=== PATIENT | female | born 1990 | race Caucasian/White ===

== ENCOUNTER 2016-11-16 05:21 | Inpatient (IN) | payer BC, OTHER ==
[2016-11-03 15:15] LABS: BASO % 0.2 %; BASO ABS # 0.02 K/uL (0-0.2); COMPLETE YES; EOS % 0.8 %; HEMATOCRIT 34.7 % (37-47); IG% 0.3 %; LYMPH % 16.5 %; LYMPH ABS # 2.06 K/uL (1.2-3.4); MEAN CELL VOLUME 93.8 fL (80-100); MEAN CORPUSCULAR HEMOGLOBIN 32.2 pg (25-34); MEAN CORPUSCULAR HGB CONC 34.3 g/dl (32-36); MEAN PLATELET VOLUME 9.7 fL (7.4-10.4); MONO % 6.2 %; PLATELET COUNT 218 K/uL (130-400); WHITE BLOOD COUNT 12.48 K/uL (4.8-10.8)
[~2016-11-16] VITALS: Ht 162.6 cm; Wt 126.5 kg
[2016-11-16] VITALS (15 sets, daily range): BP systolic 104–127; BP diastolic 66–81; PULSE 72–90; TEMP 36.7–37.2; O2SAT 96–99; Ht 162.6 cm; Wt 126.5 kg
[~2016-11-16 05:21] MED LIST: VNTHFA/IN INH; [UNRECOGNIZED DRUG - OTHER] PO
[2016-11-16] MEDS ORDERED: LACTATED RINGER'S 1000ML 1,000 ML IV ONE (05:29)
[2016-11-16] MEDS ORDERED: CITRIC ACID/SODIUM CITRATE 15 ML UDC PO SCH (06:00)
[2016-11-16] MEDS ORDERED: CEFAZOLIN IV 3,000 MG in DEXTROSE 5% 50ML IV SCH (06:00)
[2016-11-16] MEDS ORDERED: LACTATED RINGER'S 1000ML 1,000 ML IV SCH (06:00)
[2016-11-16 06:27] LABS: BASO % 0.2 %; BASO ABS # 0.03 K/uL (0-0.2); COMPLETE YES; EOS % 1.1 %; HEMATOCRIT 34.3 % (37-47); IG% 0.3 %; LYMPH % 21.5 %; LYMPH ABS # 2.82 K/uL (1.2-3.4); MEAN CELL VOLUME 94.5 fL (80-100); MEAN CORPUSCULAR HEMOGLOBIN 32.5 pg (25-34); MEAN CORPUSCULAR HGB CONC 34.4 g/dl (32-36); MEAN PLATELET VOLUME 9.9 fL (7.4-10.4); MONO % 6.9 %; PLATELET COUNT 202 K/uL (130-400); RED BLOOD COUNT 3.63 M/uL (4.2-5.4); WHITE BLOOD COUNT 13.12 K/uL (4.8-10.8)
[2016-11-16] MEDS ORDERED: FENTANYL CITRATE INJ 50 MCG/1 ML 2 ML VIAL ONE (07:01)
[2016-11-16] MEDS ORDERED: MoRPHine SULFATE PF 1 MG/ML 10 ML AMP/VIAL ONE (07:01)
[2016-11-16] MEDS ORDERED: OXYTOCIN INJ 10 UNITS/ML VIAL ONE (07:01)
--- NOTE | 2016-11-16 07:25 | History & Physical Bridge Note ---
H&P Re-Evaluation Bridge Note: I have examined the patient, reviewed the History & Physical and in the interval since the performance of the History & Physical I have noted the following changes of clinical significance: No changes noted
[2016-11-16] MEDS ORDERED: ATROPINE SULFATE 0.1 MG/ML 5ML SYR IV PRN (07:30)
[2016-11-16] MEDS ORDERED: KETOROLAC TROMETHAMINE 30 MG/ML VIAL IV. PRN ×2 (07:30→09:45)
[2016-11-16] MEDS ORDERED: ONDANSETRON INJ 2 MG/ML 2 ML VIAL IV PRN ×2 (07:30→09:45)
[2016-11-16] MEDS ORDERED: EpHEDrine SULFATE INJ 50 MG/ML AMP IV PRN ×2 (07:30→09:45)
[2016-11-16] MEDS ORDERED: FENTANYL CITRATE INJ 50 MCG/1 ML 2 ML VIAL IV PRN (07:30)
[2016-11-16] MEDS ORDERED: OXYTOCIN INJ 10 UNITS/ML VIAL INJ ONE (09:11)
--- NOTE | 2016-11-16 09:25 | [facility] Post Operative Brief Note ---
Immediate Operative Summary Operative Date Nov 16, 2016. Pre-Operative Diagnosis Term at 39 4/7 weeks desires repeat caesarean section. Post-Operative Diagnosis same Procedure(s) Performed Repeat caesarean section with the of live male child at 0804. Surgeon Dr. Guallpa Pumping Station Engineer Surgeon(s) Dr. Parks Estimated Blood Loss 700 ML Findings dictated Specimens A; Placenta-EXAM B; Cord Blood Complication(s) None Disposition L&D
[2016-11-16] MEDS ORDERED: HYDROCORTISONE ACETATE 25 MG SUPP PR PRN ×2 (09:30→12:00)
[2016-11-16] MEDS ORDERED: BENZOCAINE 20% AER SPR 82.5 GM CAN EXT PRN ×2 (09:30→12:00)
[2016-11-16] MEDS ORDERED: LANOLIN OINT EXT PRN ×4 (09:30→12:00)
[2016-11-16] MEDS ORDERED: MAGNESIUM HYDROXIDE SUSP 30 ML UDC PO PRN (09:30)
[2016-11-16] MEDS ORDERED: SUPERCREAM 0.870 % 15GM JAR EXT PRN ×2 (09:30→12:00)
[2016-11-16] MEDS ORDERED: SENNA 8.6 MG TAB PO PRN (09:30)
[2016-11-16] MEDS ORDERED: NALOXONE HCL INJ 0.08 MG in SYRINGE 1.8 ML IV PRN (09:37)
[2016-11-16] MEDS ORDERED: LACTATED RINGER'S 1000ML 500 ML IV PRN (09:37)
[2016-11-16] MEDS ORDERED: SODIUM CHLORIDE 0.9% 1000ML 1,000 ML IV PRN (09:37)
[2016-11-16] MEDS ORDERED: NALOXONE HCL INJ 1 MG in SODIUM CHLORIDE 0.9% 1000ML 1,000 ML IV PRN (09:37)
--- NOTE | 2016-11-16 09:38 | Anesthesiology Progress Note ---
Anesthesia Post Op Note Date & Time Nov 16, 2016 at 09:37 Notes Mental Status: alert / awake / arousable, participated in evaluation Pt Amnestic to Procedure: Yes Nausea / Vomiting: adequately controlled Pain: adequately controlled Airway Patency, RR, SpO2: stable & adequate BP & HR: stable & adequate Hydration State: stable & adequate Neuraxial Anesthesia: was administered, sensory block is resolving Anesthetic Complications: no major complications apparent
[2016-11-16] MEDS ORDERED: NO NARCOTICS OR SEDATIVES SCH (09:45)
[2016-11-16] MEDS ORDERED: MEPERIDINE HCL 25 MG/ML CARP IV PRN (09:45)
[2016-11-16] MEDS ORDERED: NALOXONE HCL 0.4 MG/1 ML VIAL/CARP IV PRN (09:45)
[2016-11-16] MEDS ORDERED: MoRPHine SULFATE PF 1 MG/ML 10 ML AMP/VIAL EPI PRN (09:45)
[2016-11-16] MEDS: OXYTOCIN INJ 20 UNITS in LACTATED RINGER'S 1000ML 1,000 ML IV SCH ×2 (09:51→19:18)
--- NOTE | 2016-11-16 10:54 | OPERATIVE REPORT ---
DATE OF OPERATION: 11/16/2016 INDICATION FOR SURGERY: This is a 25-year-old G2, P1 at 39+ weeks, previous section, wishes to have repeat . PREOPERATIVE DIAGNOSES: at term, 39 and 4 weeks, desires repeat . POSTOPERATIVE DIAGNOSIS: Same. PROCEDURE: Repeat section. SURGEON: Dr. Christiano Guallpa. HEARING CARE PROFESSIONAL: Dr. Parks. ESTIMATED BLOOD LOSS: 700 mL. IV FLUIDS: 1300 mL. URINE OUTPUT: 200 mL clear urine at the end of the procedure. FINDINGS: Live male infant with face presentation. There was no nuchal cord. Amniotic fluid was clear. Infant's weight and Apgars in the pediatric record. The uterus and adnexa appeared grossly normal. There were some adhesions between the abdominal wall and the uterus which was carefully dissected without difficulty. Rest of the abdominal exam is unremarkable. SPECIMEN: 1. Placenta. 2. Cord blood and cord gas. DRAINS: Byrnes catheter. ANESTHESIA: Spinal. COMPLICATIONS: None. DISPOSITION: Stable to recovery room. DESCRIPTION OF PROCEDURE: The patient was taken to the operating room where she was prepped and draped in normal sterile fashion. Timeout was called. A Pfannenstiel incision was made and carried down to the fascia using a scalpel. The fascia was incised in the midline and extended laterally on both sides. The fascia was sharply dissected off the rectus abdominus muscle. Peritoneum was identified and entered sharply. Once inside the abdomen, an Trent retractor was placed in the abdomen for retraction. The vesicouterine peritoneum was sharply dissected off the lower segment of the uterus. A transverse incision was made in the uterus and extended laterally on both sides. The was delivered, head first. Cord was clamped and cut and handed over to the awaiting pediatric team. Details of the infant is in the pediatric record. Placenta was manually removed. The uterus was exteriorized and cleared of all clots and debris. The uterus was closed in 2 layers using Vicryl suture. Copious amount of irrigation was used to irrigate the abdomen. Both adnexa appeared grossly normal. The uterus was placed back in the abdomen and the vesicouterine peritoneum reapproximated using plain suture. The peritoneum was closed in a running fashion using plain suture. The fascia was closed in a running fashion using PDS. SubQ was closed with 2-0 plain suture. Skin was closed with gurinder. All instruments were removed from the abdomen including sponges, needles and retractors and accounted for x2. The patient is sent to recovery in stable condition. I attest to the content of the Intraoperative Record and any orders documented therein. Any exceptio ns are noted below.
[2016-11-16] MEDS ORDERED: OXYCODONE/ACETAMINOPHEN 5-325 TAB PO PRN (12:00)
[2016-11-16] MEDS ORDERED: OXYTOCIN 30 UNITS/500ML NSS IV PRN (12:00)
[2016-11-16] MEDS ORDERED: ACETAMINOPHEN 325 MG TAB PO PRN (12:00)
[2016-11-16] MEDS ORDERED: ACETAMINOPHEN/CODEINE 300/30MG TAB PO PRN ×2 (12:00)
[2016-11-16] MEDS ORDERED: IBUPROFEN 600 MG TAB PO PRN (12:00)
[2016-11-16] MEDS: SIMETHICONE 80 MG CHEW PO SCH ×3 (12:11→20:03)
[2016-11-16] MEDS: DiphenhydrAMINE HCL 50 MG/ML VIAL IV PRN ×2 (12:24→18:18)
[2016-11-16] MEDS: NALBUPHINE HCL INJ 10 MG/ML AMP IV PRN ×2 (14:10→14:21)
[2016-11-16] MEDS ORDERED: DOCUSATE SODIUM 100 MG CAP PO SCH (20:00)
[2016-11-16] MEDS: DOCUSATE SODIUM 100 MG CAP PO SCH (20:03)
[2016-11-17] VITALS: BP 118/73; PULSE 69; TEMP 37.2
[2016-11-17 00:45] VITALS: O2SAT 98
[2016-11-17] MEDS ORDERED: PROMETHAZINE HCL INJ 25 MG in SODIUM CHLORIDE 0.9% 50ML 50 ML IV PRN (01:30)
[2016-11-17] MEDS ORDERED: DiphenhydrAMINE HCL 50 MG/ML VIAL IV PRN (01:30)
[2016-11-17] MEDS ORDERED: ZOLPIDEM TARTRATE 5 MG TAB PO PRN (01:30)
[2016-11-17] MEDS ORDERED: DC INTRASPINAL MORPHINE ONE (01:30)
[2016-11-17] MEDS ORDERED: ONDANSETRON INJ 2 MG/ML 2 ML VIAL IV PRN (01:30)
[2016-11-17 05:50] VITALS: BP 116/75; PULSE 89; TEMP 36.9
[2016-11-17] MEDS: IBUPROFEN 600 MG TAB PO PRN ×5 (05:57→22:58)
[2016-11-17] MEDS: OXYCODONE/ACETAMINOPHEN 5-325 TAB PO PRN ×5 (05:57→22:58)
[2016-11-17 06:40] LABS: BASO % 0.1 %; BASO ABS # 0.01 K/uL (0-0.2); COMPLETE YES; EOS % 0.9 %; HEMATOCRIT 33.7 % (37-47); IG% 0.3 %; LYMPH % 14.5 %; LYMPH ABS # 1.89 K/uL (1.2-3.4); MEAN CELL VOLUME 94.1 fL (80-100); MEAN CORPUSCULAR HEMOGLOBIN 32.1 pg (25-34); MEAN CORPUSCULAR HGB CONC 34.1 g/dl (32-36); MEAN PLATELET VOLUME 9.7 fL (7.4-10.4); MONO % 6.6 %; NEUT % 77.6 %; PLATELET COUNT 155 K/uL (130-400); RED BLOOD COUNT 3.58 M/uL (4.2-5.4); WHITE BLOOD COUNT 13.02 K/uL (4.8-10.8)
[2016-11-17 07:45] VITALS: BP 114/64; PULSE 89; TEMP 36.8
[2016-11-17] MEDS ORDERED: PRENATAL VITAMIN TAB PO SCH (08:00)
[2016-11-17] MEDS ORDERED: FERROUS SULFATE 325 MG TAB PO SCH (08:00)
[2016-11-17] MEDS: SIMETHICONE 80 MG CHEW PO SCH ×4 (08:31→20:07)
[2016-11-17] MEDS: PRENATAL VITAMIN TAB PO SCH (08:31)
[2016-11-17] MEDS ORDERED: DOCUSATE SODIUM 100 MG CAP ONE (08:35)
[2016-11-17] MEDS: DOCUSATE SODIUM 100 MG CAP PO SCH ×2 (08:36→20:07)
[2016-11-17] MEDS: FERROUS SULFATE 325 MG TAB PO SCH (08:37)
--- NOTE | 2016-11-17 09:10 | OB/GYN Progress Note ---
GROOMING SALON MANAGER Progress Note Date of Service: Nov 17, 2016. Patient is seen and examined. She feels well, no complaints. Pain is under control with oral meds. Ambulating without dizziness Voiding without difficulty Tolerating regular diet with out N&V Flatus + BM NEG Bleeding is minimal No fever/ chills/ CP/ SOB/ N&V/ Leg pain Breast feeding without problems Date Time Temp Pulse Resp B/P Pulse Ox O2 Delivery O2 Flow Rate FiO2 11/17/16 05:50 36.9 89 18 116/75 Room Air 11/17/16 00:45 18 98 11/17/16 00:00 Room Air 11/17/16 00:00 37.2 69 18 118/73 Room Air 11/16/16 23:45 18 98 11/16/16 22:45 16 97 11/16/16 21:45 18 96 11/16/16 20:45 20 96 11/16/16 20:30 37.2 90 20 116/75 96 Room Air 11/16/16 19:45 22 99 11/16/16 18:45 20 98 11/16/16 17:45 20 98 11/16/16 16:45 24 97 11/16/16 16:25 97 Room Air 11/16/16 16:25 36.7 72 25 127/81 97 Room Air 11/16/16 15:45 25 98 11/16/16 14:45 18 98 11/16/16 13:45 20 99 11/16/16 12:45 18 97 11/16/16 11:45 18 97 11/16/16 11:45 Room Air 11/16/16 11:45 36.8 84 18 104/66 8-Hour Column 11/16/16 11/17/16 11/17/16 16:00 00:00 08:00 Intake Total 1222 ml 3925 ml 375 ml Output Total 150 ml 700 ml 400 ml Balance 1072 ml 3225 ml -25 ml 24-Hour Column 11/17/16 08:00 Intake Total 5522 ml Output Total 1250 ml Balance 4272 ml Last 24 Hours Test 11/17/16 06:05 White Blood Count 13.02 K/uL Red Blood Count 3.58 M/uL Hemoglobin 11.5 g/dL Hematocrit 33.7 % Mean Corpuscular Volume 94.1 fL Mean Corpuscular Hemoglobin 32.1 pg Mean Corpuscular Hemoglobin Concent 34.1 g/dl Platelet Count 155 K/uL Mean Platelet Volume 9.7 fL Neutrophils (%) (Auto) 77.6 % Lymphocytes (%) (Auto) 14.5 % Monocytes (%) (Auto) 6.6 % Eosinophils (%) (Auto) 0.9 % Basophils (%) (Auto) 0.1 % Neutrophils # (Auto) 10.10 K/uL Lymphocytes # (Auto) 1.89 K/uL Monocytes # (Auto) 0.86 K/uL Eosinophils # (Auto) 0.12 K/uL Basophils # (Auto) 0.01 K/uL RDW Standard Deviation 43.1 fL RDW Coefficient of Variation 12.6 % Immature Granulocyte % (Auto) 0.3 % Immature Granulocyte # (Auto) 0.04 K/uL PE: General: Alert, orientedx3, NAD CVS: S1S2 RRR Lungs; CTAB Abd: soft, NT, fundus firm, below Umbilicus Incision: Clean, dry, intact Perineum intact, Lochia rubra minimal Ext; NT, no edema AP: 25 yo s/p C Section, pod# 1 VSS Afebrile doing well Continue routine postop care Encourage ambulation, PO intake All questions were answered
[2016-11-17 15:15] VITALS: BP 116/73; PULSE 90; TEMP 36.9; O2SAT 97
[2016-11-17] MEDS ORDERED: BISACODYL 5 MG TABEC PO SCH (20:00)
[2016-11-17] MEDS ORDERED: BISACODYL 5 MG TABEC PO ONE (22:00)
[2016-11-17 22:50] VITALS: BP 114/62; PULSE 80; TEMP 36.8
[2016-11-18] MEDS: IBUPROFEN 600 MG TAB PO PRN ×5 (04:14→23:16)
[2016-11-18] MEDS: OXYCODONE/ACETAMINOPHEN 5-325 TAB PO PRN ×5 (04:14→23:16)
[2016-11-18] MEDS ORDERED: BISACODYL 10 MG SUPP PR PRN ×2 (07:00→09:30)
[2016-11-18 07:06] LABS: HEMATOCRIT 32.4 % (37-47)
[2016-11-18 08:10] VITALS: BP 111/65; PULSE 82; TEMP 36.8; O2SAT 99
[2016-11-18] MEDS: DOCUSATE SODIUM 100 MG CAP PO SCH ×2 (08:56→19:39)
[2016-11-18] MEDS: PRENATAL VITAMIN TAB PO SCH (08:56)
[2016-11-18] MEDS: SIMETHICONE 80 MG CHEW PO SCH ×4 (08:56→19:39)
[2016-11-18] MEDS: FERROUS SULFATE 325 MG TAB PO SCH (08:56)
--- NOTE | 2016-11-18 09:25 | OB/GYN Progress Note ---
PLASTIC PRODUCTION MACHINE SETTER Progress Note Date of Service: Nov 18, 2016. Patient is seen and examined. She feels well, no complaints. She missed her pain meds while sleeping and woke up with a lot of pain. Pain is under control with oral meds. Ambulating without dizziness Voiding without difficulty Tolerating regular diet with out N&V Flatus + BM neg Bleeding is minimal No fever/ chills/ CP/ SOB/ N&V/ Leg pain Breast feeding without problems She has h/o pp depression and likes to start a medication just in case Discussed Zoloft and agree with plan Date Time Temp Pulse Resp B/P Pulse Ox O2 Delivery O2 Flow Rate FiO2 11/17/16 22:50 Room Air 11/17/16 22:50 36.8 80 18 114/62 Room Air 11/17/16 15:15 97 Room Air 11/17/16 15:15 36.9 90 20 116/73 Room Air PE: General: Alert, orientedx3, NAD CVS: S1S2 RRR Lungs; CTAB Abd: soft, NT, fundus firm, below Umbilicus Incision: Clean, dry, intact Perineum intact, Lochia rubra minimal Ext; NT, no edema AP: 25 yo s/p C Section, pod# 2 VSS Afebrile doing well Continue routine postop care Encourage ambulation, PO intake Desires to start Zoloft, h/o pp depression All questions were answered D/C home in am
[2016-11-18] MEDS: SERTRALINE HCL 50 MG TAB PO SCH (12:16)
[2016-11-18] MEDS ORDERED: LORAZEPAM 0.5 MG TAB PO STA (12:19)
[2016-11-18 15:05] VITALS: BP 122/75; PULSE 92; TEMP 37.3
[2016-11-18 15:30] VITALS: O2SAT 99
[2016-11-18 20:05] VITALS: BP 124/78; PULSE 86; TEMP 36.8; O2SAT 98
[2016-11-18 23:20] VITALS: BP 109/64; PULSE 84; TEMP 36.6; O2SAT 98
[2016-11-18] MEDS ORDERED: LORAZEPAM 0.5 MG TAB PO PRN (23:45)
[2016-11-19 07:15] VITALS: BP 128/80; PULSE 89; TEMP 36.8
--- NOTE | 2016-11-19 07:34 | OB/GYN Progress Note ---
POLICY ANALYST Progress Note Date of Service Nov 19, 2016. Subjective conversation w/ patient, physical exam Ambulation: ambulating normally Voiding: no voiding problems Passing Gas: Yes Diet Tolerance: Regular Diet Lochia: Moderate Feeding Type: Breast Feeding Review of Systems Constitutional: No chills, No fatigue, No fever, No problem reported, No sweats , No weakness, No weight loss Respiratory: No cough, No dyspnea at rest, No dyspnea on exertion, No hemoptysis, No problem reported, No shortness of breath, No sputum, No wheezing Cardiac: No PND, No chest pain, No claudication, No edema, No orthopnea, No palpitations, No problem reported Breast: No breast lump, No breast pain, No change in shape, No nipple discharge , No problem reported, No see HPI Abdomen: No GI bleeding, No constipation, No diarrhea, No nausea, No pain, No problem reported, No vomiting Female : No abnormal vaginal bleeding, No dysuria, No hematuria, No incontinence, No problem reported, No see HPI, No urinary frequency, No vaginal discharge VD day #1 pt doing well 'No complaints disch home tomorrow disch papers for tomorrow completed Objective Vital Signs Date Time Temp Pulse Resp B/P Pulse Ox O2 Delivery O2 Flow Rate FiO2 11/18/16 23:20 36.6 84 18 109/64 98 Room Air 11/18/16 23:20 Room Air 11/18/16 20:05 36.8 86 18 124/78 98 Room Air 11/18/16 20:05 Room Air 11/18/16 15:05 Room Air 11/18/16 15:05 37.3 92 18 122/75 Room Air 11/18/16 08:10 Room Air 11/18/16 08:10 36.8 82 16 111/65 99 Room Air
[2016-11-19] MEDS ORDERED: MTR600X PO (07:35)
--- NOTE | 2016-11-19 07:37 | Discharge Instructions ---
Discharge Instructions Admission Reason for Admission: Previous Section Discharge Discharge Diagnosis / Problem: Discharge Goals Goal(s): Routine recovery after delivery Activity Recommendations Activity Limitations: as noted below Lifting Limitations: gradually increase as tolerated Exercise/Sports Limitations: until after follow-up appointment May Resume Sexual Activity: after follow-up appointment ACTIVITY RECOMMENDATIONS: * Gradual return to full activity over the next 2-3 weeks. * No lifting - nothing heavier than baby over the next 2-3 weeks. * Do not engage in vigorous exercise, sexual activity or sports until cleared by your physician. * Do not drive or operate any motorized equipment until cleared by your physician. * You may shower/bathe daily. BREAST CARE: If you are not breast feeding: * Wear a supportive bra 24 hours a day for one to two weeks. * Avoid stimulating your breasts and nipples as much as possible during the first few weeks after delivery. * When taking a shower, have the warm water hit your back, not breasts. * When your breasts feel full, apply ice packs. Usually three to four times a day helps ease the discomfort. * Take a mild pain medication (Tylenol/Motrin) when you are uncomfortable. If breast feeding: * Use breast milk to lubricate nipples. Lansinoh cream may be used for sore nipples. You do not need to remove cream prior to breast feeding. If using a different brand of cream, check the label for directions regarding removal of cream prior to nursing. * Wear a supportive bra. * If having problems with breasts or breast feeding, call a windows consultant or your health care provider. EPISIOTOMY CARE: After delivery, if you have an episiotomy (stitches), the following steps will ease discomfort and aid healing. * For the first 24 hours after delivery, place ice packs next to your episiotomy to help reduce swelling. * After the first 24 hour-period, sitz baths, either portable or in the tub, are suggested. A shower with a shower arm sprayed over the episiotomy may be comforting. * Anya care should be done after each voiding and bowel movement. Squirt warm water from a plastic bottle over the perineum (region of the body between the anus and urinary opening) and pat dry. * Use Dermoplast to ease discomfort. Shake container. Smock directly over the episiotomy. * Place a Tucks on a clean sanitary pad next to your episiotomy. OVER THE COUNTER MEDICATION: * For discomfort or pain, you may use Acetaminophen (Tylenol), Ibuprofen (Advil ), or Naproxen (Aleve) following the package directions. * For constipation you may use Colace following the package directions. SPECIAL CARE INSTRUCTIONS: When you are discharged from the hospital, it is important for you to follow the instructions listed below: * During the first week at home, you should be able to care for yourself and your baby. In addition, the usual light household activities are encouraged. * Limit your activities to the way you feel. Do not try to clean the house or move furniture. Be sensible. * If you actively engage in sports and have done so up until the time of your delivery, you may resume these activities as soon as you feel able. This may take up to one month or even longer. Use good judgment. * Continue to take your vitamins for at least six weeks after the of your baby. * Your diet need not be limited unless you were on a special diet before your delivery. Breast-feeding mothers need around 2500 calories per day and at least 64-80 ounces of fluid per day (8 to 10 glasses). * You should eat foods from the four major food groups. Crash diets or fad diets are to be avoided. Eating lean meats, fresh fruits and vegetables, low-fat dairy products, high fiber foods and a regular exercise program, will help you get back to your pre- weight without putting your health at risk. * Constipation is sometimes a problem after delivery. Take a mild laxative as needed. If breast feeding, Milk of Magnesia is acceptable to use. You may use a suppository or Fleets enema if no episiotomy. * A daily shower or tub bath is suggested. Be sure to thoroughly and gently dry the perineum. * A bloody vaginal discharge will usually continue until around four weeks post . A small amount of bleeding may continue for as long as six weeks. Vaginal discharge changes from the bright red bleeding after delivery to pink then brownish and finally yellowish-pink before becoming white and disappearing. * Bleeding may increase with activity. Your first period may come in 4-8 weeks. If you are breast feeding, your period may be delayed even longer. * [place] (sex) can begin whenever both you and your partner feel comfortable and do not have any form of genital infection. It is recommended that you wait until after your return appointment and discuss with your physician. If you have questions, please talk to your health care practitioner. A condom should be used to prevent infection and . * Foreplay, gentle intercourse and lubrication is very important the first several times to prevent pain. A water-based lubricant such as K-Y jelly or Astroglide may be used. * Tampons may be used six weeks after delivery. * Douching should be avoided for 6 weeks after delivery. * If you have RH negative blood and your baby is RH positive, you will receive RHOGAM by injection prior to discharge. The nurse will give you a card to keep with you that has the date and place that you received RHOGAM after delivery. * During your care, you had a Rubella screen done to check for the presence of rubella antibodies in your blood. If your test was negative, you will receive a Rubella vaccine prior to discharge. This vaccine may cause a fever, soreness at the injection site and flu-like symptoms. If these symptoms persist, notify your health care practitioner. is not advised for three months after a Rubella vaccine. There is a higher chance of having a baby with defects if conceived within three months of getting the vaccine. * If you were discharged 24 hours from delivery or before 48 hours: Visiting nurses will come to your home 48 hours after discharge to assess you and your baby. The visiting nurse will meet with you while you are in the hospital to arrange a time and get directions to your home. * Verbalizes understanding of car seat law as reviewed with patient nursing. * Car Seat hand-out given and reviewed with patient by nursing. * Shaken baby information reviewed with patient by nursing. Call you doctor if: * Heavy bleeding (saturating several pads an hour) or passing clots the size of your fist. * A fever >101 degrees F (38.3 degrees C) on two occasions four hours apart and/or chills. * Unusual pain in the pelvic or vaginal areas. * "Baby Blues" lasting longer than two weeks. If you have any questions or concerns, call your health care practitioner at . FOLLOW-UP VISIT: * Please call the office at to schedule a 6 week examination. It is important you keep this appointment. * It is important for you to make arrangements for either yearly or twice yearly check-ups thereafter. . Current Hospital Diet Patient's current hospital diet: Regular Diet Discharge Diet Recommended Diet: Regular Diet Procedures Procedures Performed: Repeat caesarean section with the of live male child at 0804. Pending Studies Studies pending at discharge: no Medical Emergencies . Who to Call and When: Medical Emergencies: If at any time you feel your situation is an emergency, please call 911 immediately. . Non-Emergent Contact Non-Emergency issues call your: Specialist Call Non-Emergent contact if: you have a fever, your pain is not controlled, wound has increased drainage . . "Provider Documentation" section prepared by Christiano Guallpa. VTE Core Measure Inpt VTE Proph given/why not?: Treatment not indicated
[2016-11-19] MEDS: DOCUSATE SODIUM 100 MG CAP PO SCH (07:39)
[2016-11-19] MEDS: PRENATAL VITAMIN TAB PO SCH (07:40)
[2016-11-19] MEDS: FERROUS SULFATE 325 MG TAB PO SCH (07:40)
[2016-11-19] MEDS: SERTRALINE HCL 50 MG TAB PO SCH (07:40)
[2016-11-19] MEDS: SIMETHICONE 80 MG CHEW PO SCH ×2 (07:40→11:49)
[2016-11-19] MEDS: IBUPROFEN 600 MG TAB PO PRN ×2 (07:40→11:50)
[2016-11-19] MEDS ORDERED: FRRS300 PO (07:42)
[2016-11-19] MEDS: OXYCODONE/ACETAMINOPHEN 5-325 TAB PO PRN ×2 (07:42→11:50)
[2016-11-19] MEDS ORDERED: OXYC-57 PO (07:42)
[2016-11-19] MEDS ORDERED: CLC100 PO (07:42)
[2016-11-19] MEDS ORDERED: SERT25TA PO (07:47)
--- NOTE | 2016-11-19 07:57 | Discharge Instructions ---
Discharge Instructions Admission Reason for Admission: Previous Section Discharge Discharge Diagnosis / Problem: c/sec Discharge Goals Goal(s): Routine recovery after Activity Recommendations Activity Limitations: as noted below Lifting Limitations: gradually increase as tolerated Exercise/Sports Limitations: until after follow-up appointment May Resume Sexual Activity: after follow-up appointment Shower/Bathe: keep incision dry Driving or Machine Use: ACTIVITY RECOMMENDATIONS: * Gradual return to full activity over the next 2-3 weeks. * No lifting - nothing heavier than baby over the next 2-3 weeks. * Do not engage in vigorous exercise, sexual activity or sports until cleared by your physician. * Do not drive or operate any motorized equipment until cleared by your physician. * You may shower/bathe daily. BREAST CARE: If you are not breast feeding: * Wear a supportive bra 24 hours a day for one to two weeks. * Avoid stimulating your breasts and nipples as much as possible during the first few weeks after delivery. * When taking a shower, have the warm water hit your back, not breasts. * When your breasts feel full, apply ice packs. Usually three to four times a day helps ease the discomfort. * Take a mild pain medication (Tylenol/Motrin) when you are uncomfortable. If breast feeding: * Use breast milk to lubricate nipples. Lansinoh cream may be used for sore nipples. You do not need to remove cream prior to breast feeding. If using a different brand of cream, check the label for directions regarding removal of cream prior to nursing. * Wear a supportive bra. * If having problems with breasts or breast feeding, call a digital marketing consultant or your health care provider. OVER THE COUNTER MEDICATION: * For discomfort or pain, you may use Acetaminophen (Tylenol), Ibuprofen (Advil ), or Naproxen (Aleve) following the package directions. * For constipation you may use Colace following the package directions. SPECIAL CARE INSTRUCTIONS: When you are discharged from the hospital, it is important for you to follow the instructions listed below: * During the first week at home, you should be able to care for yourself and your baby. In addition, the usual light household activities are encouraged. * Limit your activities to the way you feel. Do not try to clean the house or move furniture. Be sensible. * If you actively engage in sports and have done so up until the time of your delivery, you may resume these activities as soon as you feel able. This may take up to one month or even longer. Use good judgment. * Continue to take your vitamins for at least six weeks after the of your baby. * Your diet need not be limited unless you were on a special diet before your delivery. Breast-feeding mothers need around 2500 calories per day and at least 64-80 ounces of fluid per day (8 to 10 glasses). * You should eat foods from the four major food groups. Crash diets or fad diets are to be avoided. Eating lean meats, fresh fruits and vegetables, low-fat dairy products, high fiber foods and a regular exercise program, will help you get back to your pre- weight without putting your health at risk. * Constipation is sometimes a problem after delivery. Take a mild laxative as needed. If breast feeding, Milk of Magnesia is acceptable to use. You may use a suppository or Fleets enema if no episiotomy. * A daily shower or tub bath is suggested. Be sure to thoroughly and gently dry the perineum. * A bloody vaginal discharge will usually continue until around four weeks post . A small amount of bleeding may continue for as long as six weeks. Vaginal discharge changes from the bright red bleeding after delivery to pink then brownish and finally yellowish-pink before becoming white and disappearing. * Bleeding may increase with activity. Your first period may come in 4-8 weeks. If you are breast feeding, your period may be delayed even longer. * Evergreen (sex) can begin whenever both you and your partner feel comfortable and do not have any form of genital infection. It is recommended that you wait at least six weeks for internal and external healing to occur. If you have questions, please talk to your health care practitioner. A condom should be used to prevent infection and . * Foreplay, gentle intercourse and lubrication is very important the first several times to prevent pain. A water-based lubricant such as K-Y jelly or Astroglide may be used. * Tampons and/or Douching should be avoided until after six weeks check-up. * If you have RH negative blood and your baby is RH positive, you will receive RHOGAM by injection prior to discharge. The nurse will give you a card to keep with you that has the date and place that you received RHOGAM after delivery. * During your care, you had a Rubella screen done to check for the presence of rubella antibodies in your blood. If your test was negative, you will receive a Rubella vaccine prior to discharge. This vaccine may cause a fever, soreness at the injection site and flu-like symptoms. If these symptoms persist, notify your health care practitioner. is not advised for three months after a Rubella vaccine. * Verbalizes understanding of car seat law as reviewed with patient nursing. * Car Seat hand-out given and reviewed with patient by nursing. * Shaken baby information reviewed with patient by nursing. Call you doctor if: * Heavy bleeding (saturating several pads an hour) or passing clots the size of your fist. * A fever >101 degrees F (38.3 degrees C) on two occasions four hours apart and /or chills. * Unusual pain in the pelvic or vaginal areas. Pain should improve each day . * Call the doctor for any increased redness, drainage or swelling around the incision and any pain unrelieved by prescribed pain medication. * Any signs or symptoms of phlebitis (possible blood clots forming in the veins ): leg pain, warm, red or swollen area on leg. * "Baby Blues" lasting longer than two weeks. If you have any questions or concerns, call your health care practitioner at . FOLLOW-UP VISIT: * Incision check (staple removal) in 1 week. Please call doctor's office at to set up appointment. * Please call the office at to schedule a 6 week examination. It is important you keep this appointment. * It is important for you to make arrangements for either yearly or twice yearly check-ups thereafter. . Current Hospital Diet Patient's current hospital diet: Regular Diet Discharge Diet Recommended Diet: Regular Diet Procedures Procedures Performed: Repeat caesarean section with the of live male child at 0804. Pending Studies Studies pending at discharge: no Medical Emergencies . Who to Call and When: Medical Emergencies: If at any time you feel your situation is an emergency, please call 911 immediately. . Non-Emergent Contact Non-Emergency issues call your: Specialist Call Non-Emergent contact if: you have a fever, your pain is not controlled, wound has increased drainage . . "Provider Documentation" section prepared by Christiano Guallpa. VTE Core Measure Inpt VTE Proph given/why not?: Treatment not indicated
[2016-11-19 13:38] VITALS: BP_DIAS 80; PULSE 89; TEMP 36.8
--- NOTE | 2016-11-21 04:08 | DISCHARGE SUMMARY ---
CHIEF COMPLAINT: 1. at term. 2. Prior section, wishes to have repeat . HISTORY OF PRESENT ILLNESS: This is a 25-year-old G2, P1 at 38 weeks gestation with prior section, who wishes to have repeat . The patient's has been unremarkable. She presented to [facility] on 11/16/2016 to undergo repeat section where she delivered a live infant. Weight and Apgars are in the pediatric records. Surgery was uncomplicated. The patient did well on day of surgery and met all milestones at recovery. On postop day #1, which was 11/17/2016, patient continued to improve. Byrnes catheter was removed. She was able to ambulate and tolerate food orally. Her diet was advanced and patient continued to improve with activity on postop day #2, which was 11/18/2016. The patient is discharged home today in stable condition on postoperative day #3, which is 11/19/2016. PAST MEDICAL HISTORY: The patient has history of anxiety, no history of diabetes, hypertension or asthma. PAST SURGICAL HISTORY: The patient had a previous section. SOCIAL HISTORY: The patient denies tobacco, drug or alcohol use. ALLERGIES: THE PATIENT IS ALLERGIC TO [place]. REVIEW OF SYSTEMS: Negative, except as dictated in the HPI. PHYSICAL EXAMINATION: GENERAL: Well-developed, well-nourished white female, in no acute distress. VITAL SIGNS: On 11/19/2016, showed temperature of 36.8, pulse of 89, respirations of 20, blood pressure of 120/80. LABORATORY DATA: On 11/18/2016 showed hemoglobin of 10.9, hematocrit of 32.4. CONDITION ON DISCHARGE: Stable. OPERATION: Repeat section. PHYSICAL EXAMINATION: HEART: S1, S2, regular rhythm and rate. LUNGS: Clear to auscultation bilaterally. No wheezes, crackles or rales. ABDOMEN: Nontender, nondistended, positive bowel sounds. Incision is clean, dry and intact. EXTREMITIES: No cyanosis, clubbing or edema. PLAN ON DISCHARGE: The patient is discharged home with instructions regarding activity, diet, followup appointment and medications.
[2016-11-26] MEDS ORDERED: SERTRALINE HCL 50 MG TAB PO SCH (08:00)
== END 2016-11-19 13:40 | disposition home or self-care (01) | DRG 766 ==
LOC: C.LD 05:21 → EDSTATUS 07:30 → C.OBG 12:11
PROVIDERS: ADMIT Obstetrics & Gynecology; ATTEND Obstetrics & Gynecology
PROC: 10D00Z1 Extraction of Products of Conception, Low, Open Approach (ICD-10-PCS; principal; 2016-11-16 07:30)
DX: O34.211 Maternal care for low transverse scar from previous cesarean delivery (principal); Z37.0 Single live birth; Z3A.39 39 weeks gestation of pregnancy

== ENCOUNTER → 2018-06-06 | Outpatient (CLI) | payer BC ==
[~2018-06-06] MED LIST changes: +BUPR-79 PO; +CIPR-255 PO; +HYDR-5688 PO; +NITR1CAP32 PO; +ONDA4TAB10 SL; +TAMS0.4C38 PO; -VNTHFA/IN INH
--- NOTE | 2018-06-06 13:03 | DIAGNOSTIC IMAGING REPORT ---
CT OF THE ABDOMEN AND PELVIS WITHOUT CONTRAST CLINICAL HISTORY: Nephrolithiasis. Right-sided pain. COMPARISON STUDY: CT of the abdomen and pelvis May 27, 2009 and renal ultrasound June 01, 2018. TECHNIQUE: Axial images of the abdomen and pelvis were obtained without IV contrast. Images were reviewed in the axial, sagittal, and coronal planes. A dose lowering technique was utilized adhering to the principles of ALARA. FINDINGS: An 8 mm x 6 mm distal right ureteral calculus is noted with no upstream dilatation. Right hydronephrosis shown on ultrasound June 01, 2018 has resolved. A few small left renal calculi measure up to 4 mm. There are no left ureteral calculi. There is no left hydronephrosis. Intrauterine device is in place. Evaluation of the abdomen and pelvis is suboptimal as unenhanced exam. The liver, spleen, adrenal glands and pancreas are normal. There is no evidence for a bowel obstruction. There is no ascites or lymphadenopathy. IMPRESSION: 1. 8 mm x 6 mm distal right ureteral calculus located approximately 2.5 cm proximal to the ureterovesical junction. No hydronephrosis. 2. Several small left renal calculi. Electronically signed by: Ezequiel Cardona M.D. 06/06/2018 1:01 PM Dictated Date/Time: 06/06/2018 12:51 PM
--- NOTE | 2018-06-06 13:25 | DIAGNOSTIC IMAGING REPORT ---
KUB CLINICAL HISTORY: Nephrolithiasis. COMPARISON STUDY: KUB June 01, 2018 and renal ultrasound June 01, 2018. FINDINGS: 8 mm x 6 mm distal right ureteral calculus is noted. This calculus was obscured on previous exam by osseous structures. Intrauterine device is noted. Several left renal calculi are noted. Bowel gas pattern is normal. IMPRESSION: 1. 8 mm x 6 mm distal right ureteral calculus. 2. Left-sided nephrolithiasis. Electronically signed by: Ezequiel Cardona M.D. 06/06/2018 1:24 PM Dictated Date/Time: 06/06/2018 1:23 PM
[2018-06-06 19:27] LABS: BLOOD UREA NITROGEN 11 mg/dl (7-18); CARBON DIOXIDE 29 mmol/L (21-32); POTASSIUM 4.1 mmol/L (3.5-5.1); SODIUM 140 mmol/L (136-145)
== END | disposition home or self-care (01) ==
LOC: C.CTS 12:33
PROVIDERS: ATTEND Urology
DX: N20.2 Calculus of kidney with calculus of ureter (principal)

== ENCOUNTER → 2018-06-07 | Outpatient (CLI) | payer BC ==
[~2018-06-07] MED LIST changes: -NITR1CAP32 PO
[2018-06-07 18:47] LABS: BASO % 0.4 %; BASO ABS # 0.04 K/uL (0-0.2); EOS % 3.1 %; HEMOGLOBIN 13.4 g/dL (12.0-16.0); IG# 0.01 K/uL (0.00-0.02); LYMPH % 24.7 %; LYMPH ABS # 2.38 K/uL (1.2-3.4); MEAN CELL VOLUME 94.3 fL (80-100); MEAN CORPUSCULAR HEMOGLOBIN 31.6 pg (25-34); MEAN CORPUSCULAR HGB CONC 33.5 g/dl (32-36); MEAN PLATELET VOLUME 10.2 fL (7.4-10.4); MONO % 6.5 %; MONO ABS # 0.63 K/uL (0.11-0.59); NEUT % 65.2 %; NEUT ABS # 6.26 K/uL (1.4-6.5); PLATELET COUNT 200 K/uL (130-400); RED CELL DISTRIBUTION WIDTH CV 13.3 % (11.5-14.5); RED CELL DISTRIBUTION WIDTH SD 45.8 fL (36.4-46.3); WHITE BLOOD COUNT 9.62 K/uL (4.8-10.8)
--- NOTE | 2018-06-07 18:56 | DIAGNOSTIC IMAGING REPORT ---
KUB CLINICAL HISTORY: N20.0 Nephrolithiasis COMPARISON STUDY: 06/06/2018 FINDINGS: There is no pathologic bowel dilatation. An IUD is again visualized. There is a 2 mm upper pole left renal calculus. There is a stable 9 mm right pelvic basin calcification. This is consistent with the patient's known distal right ureteral calculus. IMPRESSION: 1. Stable 8 mm right pelvic basin calcification, consistent with the patient's known distal right ureteral calculus 2. Left-sided nephrolithiasis 3. No evidence of pathologic bowel dilatation Electronically signed by: Yomi Paulino M.D. 06/07/2018 6:55 PM Dictated Date/Time: 06/07/2018 6:53 PM
== END | disposition home or self-care (01) ==
LOC: C.RAD 18:21
PROVIDERS: ATTEND Urology
DX: N20.0 Calculus of kidney (principal)

== ENCOUNTER → 2018-06-19 | Outpatient (CLI) | payer BC ==
--- NOTE | 2018-06-19 12:49 | DIAGNOSTIC IMAGING REPORT ---
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 Unchanging nonobstructing calcification peripheral aspect left mid kidney. Nonobstructive bowel pattern. Intrauterine device is present. IMPRESSION: 1. Interval passage of the distal right ureteral calculus. 2. Unchanging calcification left kidney. The above report was generated using voice recognition software. It may contain grammatical, syntax or spelling errors. Electronically signed by: Albert Boyd M.D. 06/19/2018 12:48 PM Dictated Date/Time: 06/19/2018 12:47 PM
== END | disposition home or self-care (01) ==
LOC: C.RAD 12:09
PROVIDERS: ATTEND Urology
DX: N20.0 Calculus of kidney (principal)

== ENCOUNTER → 2018-06-19 | Outpatient (CLI) | payer BC | END | disposition home or self-care (01) | LOC: C.LABSPEC 16:54 | PROVIDERS: ATTEND Urology | DX: N20.0 Calculus of kidney (principal) ==